=== PATIENT | female | born 1990 | race Caucasian/White ===

== ENCOUNTER 2016-05-11 00:26 | Emergency (ER) | payer OTHER ==
[~2016-05-11] VITALS: Ht 162.6 cm; Wt 78.7 kg
[2016-05-11] MEDS ORDERED: SKYLA1 EACH IY (00:39)
[2016-05-11] MEDS ORDERED: MOTRIN600 MG PO (02:00)
[2016-05-11 02:14] VITALS: BP 112/74
== END 2016-05-11 02:14 | disposition home or self-care (01) ==
LOC: RME 00:26 → EME 00:26 → RME 02:14
DX: S83.92XA Sprain of unspecified site of left knee, initial encounter (principal); X50.9XXA Other and unspecified overexertion or strenuous movements or postures, initial encounter; Z88.0 Allergy status to penicillin
CPT/HCPCS: 73564; 99281; 99284

== ENCOUNTER 2016-12-24 09:56 | Day surgery (SDC) | payer OTHER ==
[~2016-12-24] VITALS: Ht 162.6 cm; Wt 70.2 kg
[~2016-12-24 09:56] MED LIST: ADVIL,NUPRIN,M200 MG PO; DIFLUCAN150 MG PO; MOTRIN600 MG PO; SKYLA1 EACH IY; VENTOLIN HFA18 GM IH
[2016-12-24 10:22] VITALS: BP 108/71
[2016-12-24] MEDS ORDERED: VICODIN 5-3001 EACH PO (11:55)
[2016-12-24] MEDS ORDERED: MOTRIN800 MG PO (11:55)
[2016-12-24 14:11] VITALS: BP 110/48
[2016-12-24 15:00] VITALS: BP 107/59
== END 2016-12-24 15:15 | disposition home or self-care (01) ==
LOC: SDC 09:56
PROC: 0U9M0ZZ Drainage of Vulva, Open Approach (ICD-10-PCS; principal; 2016-12-24)
DX: N75.0 Cyst of Bartholin's gland (principal); J45.909 Unspecified asthma, uncomplicated; F17.210 Nicotine dependence, cigarettes, uncomplicated; Z88.0 Allergy status to penicillin; Z88.2 Allergy status to sulfonamides
CPT/HCPCS: J0131; J1100; J1170; J1885; J2250; J2405; J3010